=== PATIENT | male | born 1955 | race Two or more races ===

== ENCOUNTER 2018-08-22 14:38 | Emergency (ER) | payer OTHER ==
[~2018-08-22] VITALS: Ht 170.2 cm; Wt 111.1 kg
[2018-08-22] MEDS ORDERED: METFORMIN HCL850 MG (15:22)
[2018-08-22] MEDS ORDERED: AVAPRO75 MG (15:22)
[2018-08-22] MEDS ORDERED: TOPROL XL100 M1 (15:22)
[2018-08-22] MEDS ORDERED: TOPROL XL50 M1 (15:22)
[2018-08-22] MEDS ORDERED: GABAPENTIN100 MG (15:22)
[2018-08-22] MEDS ORDERED: NEURONTIN300 MG (15:23)
[2018-08-22] MEDS ORDERED: ASPIR 8181 MG (15:23)
[2018-08-22] MEDS ORDERED: ZETIA10 MG (15:23)
[2018-08-22] MEDS ORDERED: CRESTOR20 MG (15:23)
== END 2018-08-22 16:03 | disposition home or self-care (01) ==
LOC: ER 14:38
DX: Z76.0 Encounter for issue of repeat prescription (principal)

== ENCOUNTER 2024-06-09 12:41 | Outpatient (CLI) | payer OTHER ==
[~2024-06-09 12:41] MED LIST: ASPIR 8181 MG; AVAPRO75 MG; CRESTOR20 MG; GABAPENTIN100 MG; METFORMIN HCL850 MG; NEURONTIN300 MG; TOPROL XL100 M1; TOPROL XL50 M1; ZETIA10 MG
== END 2024-06-09 12:48 | disposition home or self-care (01) ==
LOC: TOM 12:41
PROVIDERS: ATTEND Otolaryngology
DX: J34.2 Deviated nasal septum (principal)